=== PATIENT | female | born 1970 | race Caucasian/White ===

== ENCOUNTER 2022-09-28 08:13 | Outpatient (REF) | payer OTHER, SELFPAY | END 2022-09-28 08:14 | disposition home or self-care (01) | LOC: HO.SH 08:13 | PROVIDERS: Visit Provider Internal Medicine | DX: Z01.118 Encounter for examination of ears and hearing with other abnormal findings (principal); H90.3 Sensorineural hearing loss, bilateral | CPT/HCPCS: 92557; 92567 ==